=== PATIENT | female | born 1980 | race Hispanic/Latino ===

== ENCOUNTER 2017-10-07 06:06 | Day surgery (SDC) | payer BC ==
[~2017-10-07] VITALS: Ht 149.9 cm; Wt 31.5 kg
[~2017-10-07 06:06] MED LIST: CYCLOSPORINE; ERGO500014 PO; PRED10TA3 PO; PREN1COM PO
[2017-10-07] MEDS ORDERED: SODIUM CHLORIDE 0.9% 1000ML 1,000 ML IV ONE (06:33)
[2017-10-07 07:04] VITALS: BP 172/94
[2017-10-07] MEDS ORDERED: [UNRECOGNIZED DRUG - CODE] PO (07:57)
[2017-10-07] MEDS ORDERED: NAPR220C15 PO (07:57)
[2017-10-07] MEDS ORDERED: POLY17PO4 PO (07:57)
[2017-10-07] MEDS ORDERED: PRED20TA3 PO (07:57)
[2017-10-07] MEDS ORDERED: METH5TAB2 PO (07:57)
[2017-10-07] MEDS ORDERED: CYCL100S4 PO (08:03)
[2017-10-07] MEDS ORDERED: [UNRECOGNIZED DRUG - CODE] PO (08:03)
[2017-10-07 09:14] VITALS: BP 141/89
[2017-10-07] MEDS ORDERED: PROPOFOL 1000 MG/100 ML 100 ML IV ONE (10:40)
[2017-10-07 10:59] VITALS: BP 97/59
[2017-10-07] MEDS ORDERED: DIATR MEGLU/DIATRIZOATE SODIUM 30 ML BOTTLE ONE (11:13)
== END 2017-10-07 12:05 ==
LOC: DAH 06:06
PROVIDERS: ATTEND Internal Medicine
DX: T85.598A Other mechanical complication of other gastrointestinal prosthetic devices, implants and grafts, initial encounter (principal); R13.10 Dysphagia, unspecified; D64.9 Anemia, unspecified; B19.10 Unspecified viral hepatitis B without hepatic coma; D46.9 Myelodysplastic syndrome, unspecified; Z79.899 Other long term (current) drug therapy; Z98.890 Other specified postprocedural states; C14.0 Malignant neoplasm of pharynx, unspecified
CPT/HCPCS: 43200; 43760; 74018; 81025; A4606; B4088; J2704; J7030; Q9963

== ENCOUNTER → 2017-12-18 | Outpatient (CLI) | payer BC ==
[~2017-12-18] MED LIST changes: +CYCL100S4 PO; -CYCLOSPORINE; +DIATR MEGLU/DIATRIZOATE SODIUM 30 ML BOTTLE ONE; -ERGO500014 PO; +METH5TAB2 PO; +NAPR220C15 PO; +POLY17PO4 PO; -PRED10TA3 PO; +PRED20TA3 PO; -PREN1COM PO; +[UNRECOGNIZED DRUG - CODE] PO
== END | disposition home or self-care (01) ==
LOC: RAH 11:27
PROVIDERS: ATTEND Internal Medicine Gastroenterology
DX: K94.20 Gastrostomy complication, unspecified (principal)
CPT/HCPCS: 74018; Q9963

== ENCOUNTER → 2021-01-31 | Outpatient (CLI) | payer BC ==
[~2021-01-31] MED LIST changes: -DIATR MEGLU/DIATRIZOATE SODIUM 30 ML BOTTLE ONE
== END | disposition home or self-care (01) ==
LOC: RAH 07:48
PROVIDERS: ATTEND Internal Medicine
DX: J18.0 Bronchopneumonia, unspecified organism (principal)
CPT/HCPCS: 71046

== ENCOUNTER → 2023-06-24 | Outpatient (CLI) | payer BC ==
[~2023-06-24] MED LIST changes: +METH-820 PO; -METH5TAB2 PO
== END | disposition home or self-care (01) ==
LOC: RAH 12:16
PROVIDERS: ATTEND Internal Medicine
DX: J44.9 Chronic obstructive pulmonary disease, unspecified (principal); M47.815 Spondylosis without myelopathy or radiculopathy, thoracolumbar region; M41.84 Other forms of scoliosis, thoracic region
CPT/HCPCS: 71046

== ENCOUNTER → 2023-11-11 | Outpatient (CLI) | payer BC | END | disposition home or self-care (01) | LOC: OIH 11:47 | PROVIDERS: ATTEND Internal Medicine | DX: J20.9 Acute bronchitis, unspecified (principal); M47.815 Spondylosis without myelopathy or radiculopathy, thoracolumbar region | CPT/HCPCS: 71046 ==